=== PATIENT | male | born 1930 | race Caucasian/White ===

== ENCOUNTER 2018-04-14 00:47 | Observation (INO) ==
[2018-04-14] MEDS ORDERED: Sodium Chlor 0.9% Inj 500 ML IV.SIG ONE (00:59)
[2018-04-14 01:29] LABS: Hematocrit 26.7 % (39.0-51.0); Mean Corpuscular HGB Conc 33.8 % (32.0-36.0); Mean Corpuscular Hemoglobin 30.5 pg (27.0-34.0); Mean Corpuscular Volume 90.2 fL (80.0-100.0); Platelet Count 23 th/mm3 (150-450); Red Blood Count 2.96 mil/mm3 (4.50-5.90); Red Cell Distribution Width 18.2 % (11.6-17.2); White Blood Count 9.4 th/mm3 (4.0-11.0)
--- NOTE | 2018-04-14 01:38 | XR ---
EXAM DATE: 04/14/2018 1:18 AM EDT AGE/SEX: 87 years / Male INDICATIONS: Shortness of breath. CLINICAL DATA: This is the patient's initial encounter. Patient reports that signs and symptoms have been present for 1 day and indicates a pain score of 0/10. MEDICAL/SURGICAL HISTORY: Hypertension. None. COMPARISON: No prior exams available for comparison. FINDINGS: A single AP view of the chest demonstrates the lungs to be symmetrically aerated without evidence of mass, infiltrate or effusion. Low lung volumes. The cardiomediastinal contours are unremarkable. Os seous structures are intact. CONCLUSION: Low lung volumes. No discrete infiltrate or effusion. Electronically signed by: Melchor Sorenson MD 04/14/2018 1:36 AM EDT
[2018-04-14 01:50] LABS: Activated Partial Thrombo Time 25.3 sec (24.3-30.1); INR 1.3 Ratio; Prothrombin Time 12.7 sec (9.8-11.6)
[2018-04-14 01:58] LABS: Alanine Aminotransferase 28 U/L (12-78); Anion Gap 8 meq/L (5-15); Aspartate Aminotransferase 67 U/L (15-37); Blood Urea Nitrogen 18 mg/dL (7-18); Calcium 8.1 mg/dL (8.5-10.1); Carbon Dioxide 24.9 meq/L (21.0-32.0); Chloride 105 meq/L (98-107); Glomerular Filtration Rate 57 mL/min (>89); Glucose,Random 112 mg/dL (74-106); Potassium 3.7 meq/L (3.5-5.1); Sodium 138 meq/L (136-145)
[2018-04-14 02:03] LABS: Alkaline Phosphatase 67 U/L (45-117); Total Protein 6.8 g/dL (6.4-8.2)
[2018-04-14 02:19] LABS: Blast Cells 72 % (0-0); Lymphocytes 17 % (9-44); Monocytes 1 % (0-8); Myelocytes 1 % (0-0); Tallied Nucleated RBC 4 (0-0)
[2018-04-14 02:25] LABS: Platelet Morphology Normal (Normal)
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
[2018-04-14] MEDS ORDERED: Bisacodyl 10 MG Supp RECTAL PRN (03:27)
--- NOTE | 2018-04-14 03:44 | P.HP ---
History of Present Illness Service: [facility] Primary Care Physician: UNKNOWN History of Present Illness: 87-year-old male with an unknown past medical history presents to the emergency department for evaluation of weakness, shortness of breath and burning with urination. The patient was brought by EMS from an [facility]. He reports that he was having difficulty breathing which was worse with exertion. He states he was recently seen by his primary care provider and that he was placed on a water pill. He denies chest pain. No abdominal pain. No nausea/vomiting/diarrhea. No lateralizing signs/symptoms. No fever/chills. Endorses a burning in his mind that is worse with urination. States he had a recent history of urinary tract infection a few weeks ago. The patient is a poor historian and does not know his medications or his past medical history. Information obtained from records review. Review of Systems unobtainable due to mental status PMFSH - History History Provided By: Patient - Medical History Medical History: Medical History (Last Updated 04/14/18 @ 03:34 by Mariah Godfrey MD) Anxiety and depression Arthritis Family history unknown Hypertension Surgical history unknown Surgical history unknown - Family History Family History: Family History (Last Updated 04/14/18 @ 03:34 by Mariah Godfrey MD) Other Family history unknown - Tobacco History Second Hand Smoke Exposure: No Smoking Status: Never smoker - Alcohol History How Often Do You Have a Drink Containing Alcohol: Never - Travel History Recent Travel in the [place] Within the Last 8 Weeks: No Recent Travel Out of the Country Within the Last 8 Weeks: No - Immunization History Tetanus Immunization: Unsure Medications and Allergies Active Medications: Active Medications Al Hydroxide/Mg Hydroxide (Milk Of Magnesia Liq) 30 ml PO Q12H PRN PRN Reason: Mild Constipation Bisacodyl (Dulcolax Supp) 10 mg RECTAL DAILY PRN PRN Reason: SEVERE CONSITIPATION Heparin Sodium (Porcine) (Heparin Inj) 5,000 units SQ Q12H ANGELIC Lactulose (Lactulose Liq) 30 ml PO DAILY PRN PRN Reason: SEVERE CONSITIPATION Ondansetron HCl (Zofran Inj) 4 mg IV.PUSH Q6H PRN PRN Reason: NAUSEA OR VOMITING Senna/Docusate Sodium (Xin-Colace) 1 tab PO BID ANGELIC Sennosides (Senokot) 17.2 mg PO Q12H PRN PRN Reason: Moderate Constipation Allergies Allergy/AdvReac Type Severity Reaction Status Date / Time acetaminophen Allergy Mild PRESSURE Unverified 04/08/17 14:48 IN HEAD propoxyphene Allergy Mild PRESSURE Unverified 04/08/17 14:48 IN HEAD diazepam Allergy Unknown Abdominal Unverified 04/14/18 00:57 Pain VALUIM Allergy Unknown NAUSEA Uncoded 02/04/07 18:07 Home Medications Medication Instructions Recorded Confirmed Type Unable to Obtain Home Meds 04/14/18 04/14/18 History Exam Vital signs: Vital Signs 04/14/18 00:53 04/14/18 00:58 04/14/18 02:06 Temperature 98.8 F Pulse Rate 119 H 101 H Respiratory Rate 16 20 Blood Pressure 111/69 Pulse Oximetry 98 Intake & Output 04/13/18 04/13/18 04/14/18 06:59 18:59 06:59 Weight 75 kg Narrative: Gen.: No acute distress Head: Normocephalic. Atraumatic. EENT: Pupils equal round and reactive to light. Nose without drainage. Airway intact. Throat without injection. Cardiovascular: Regular rate and rhythm. No murmurs, rubs or gallops. Respiratory: Lungs clear to auscultation bilaterally. No wheezes or rhonchi. Abdomen: Soft, nontender, nondistended. No peritoneal signs. Musculoskeletal: No gross deformities. No edema. Skin: No obvious rashes or erythema. Neuro: Sensory and motor grossly intact. Cranial nerves II through XII grossly intact. Results - Labs CBC & Chem 7: 04/14/18 01:00 04/14/18 01:00 Labs: Laboratory Results - last 24 hr 04/14/18 04/14/18 04/14/18 01:00 01:00 01:00 WBC 9.4 RBC 2.96 L Hgb 9.0 L Hct 26.7 L MCV 90.2 MCH 30.5 MCHC 33.8 RDW 18.2 H Plt Count 23 L MPV 9.0 Prelim Diff (Auto) Manual diff required WBC Differential Manual diff final Seg Neuts % (Manual) 9 L Lymphocytes % (Manual) 17 Monocytes % (Manual) 1 Myelocytes % (Man) 1 H Blast Cells % (Manual) 72 H Plasma Cell % (Manual) Abs Neuts (Manual) 0.9 L Nucleated RBCs/100 WBC 4 H Differential Comment . Platelet Estimate Low L Platelet Morphology Normal PT 12.7 H INR 1.3 APTT 25.3 Sodium 138 Potassium 3.7 Chloride 105 Carbon Dioxide 24.9 Anion Gap 8 BUN 18 Creatinine 1.21 Estimated GFR 57 L Random Glucose 112 H Lactic Acid Calcium 8.1 L Total Bilirubin 1.0 AST 67 H ALT 28 Alkaline Phosphatase 67 Troponin I Less than 0.02 L B-Natriuretic Peptide Total Protein 6.8 Albumin 3.0 L 04/14/18 04/14/18 01:00 01:05 WBC RBC Hgb Hct MCV MCH MCHC RDW Plt Count MPV Prelim Diff (Auto) WBC Differential Seg Neuts % (Manual) Lymphocytes % (Manual) Monocytes % (Manual) Myelocytes % (Man) Blast Cells % (Manual) Plasma Cell % (Manual) Abs Neuts (Manual) Nucleated RBCs/100 WBC Differential Comment Platelet Estimate Platelet Morphology PT INR APTT Sodium Potassium Chloride Carbon Dioxide Anion Gap BUN Creatinine Estimated GFR Random Glucose Lactic Acid 1.3 Calcium Total Bilirubin AST ALT Alkaline Phosphatase Troponin I B-Natriuretic Peptide 58 Total Protein Albumin - Imaging Impressions Chest X-Ray 04/14/18 01:01 CONCLUSION: Low lung volumes. No discrete infiltrate or effusion. Caprini VTE Risk Assessment Caprini VTE Risk Assessment: Moderate/High Risk (score >= 2) Caprini Risk Assessment Model: Point Value = 1 Point Value = 2 Point Value = 3 Point Value = 5 Age 41-60 Minor surgery BMI > 25 kg/m2 Swollen legs Varicose veins or History of unexplained or recurrent spontaneous Oral contraceptives or hormone replacement Sepsis (< 1 month) Serious lung disease, including pneumonia (< 1 month) Abnormal pulmonary function Acute myocardial infarction Congestive heart failure (< 1 month) History of inflammatory bowel disease Medical patient at bed rest Age 61-74 Arthroscopic surgery Major open surgery (> 45 min) Laparoscopic surgery (> 45 min) Malignancy Confined to bed (> 72 hours) Immobilizing plaster cast Central venous access Age >= 75 History of VTE Family history of VTE Factor V Leiden Prothrombin [id number] Lupus anticoagulant Anticardiolipin antibodies Elevated serum homocysteine Heparin-induced thrombocytopenia Other congenital or acquired thrombophilia Stroke (< 1 month) Elective arthroplasty Hip, pelvis, or leg fracture Acute spinal cord injury (< 1 month) Prophylaxis Regimen: Total Risk Factor Score Risk Level Prophylaxis Regimen 0-1 Low Early ambulation 2 Moderate Order ONE of the following: *Sequential Compression Device (SCD) *Heparin 5000 units SQ BID 3-4 Higher Order ONE of the following medications: *Heparin 5000 units SQ TID *Enoxaparin/Lovenox 40 mg SQ daily (WT < 150 kg, CrCl > 30 mL/min) *Enoxaparin/Lovenox 30 mg SQ daily (WT < 150 kg, CrCl > 10-29 mL/min) *Enoxaparin/Lovenox 30 mg SQ BID (WT < 150 kg, CrCl > 30 mL/min) AND/OR *Sequential Compression Device (SCD) 5 or more Highest Order ONE of the following medications: *Heparin 5000 units SQ TID (Preferred with Epidurals) *Enoxaparin/Lovenox 40 mg SQ daily (WT < 150 kg, CrCl > 30 mL/min) *Enoxaparin/Lovenox 30 mg SQ daily (WT < 150 kg, CrCl > 10-29 mL/min) *Enoxaparin/Lovenox 30 mg SQ BID (WT < 150 kg, CrCl > 30 mL/min) AND *Sequential Compression Device (SCD) Assessment and Plan - Plan Assessment/plan: 1. Weakness/shortness of breath/dyspnea on exertion Chest x-ray negative for acute process Likely some degree of deconditioning Physical therapy consulted Medication reconciliation requested 2. Burning with urination/history of recent UTI Straight cath with UA pending Urine culture as indicated Antibiotics as needed 3. Elevated blasts/anemia Patient was 72% blasts on manual differential H&H 9.0/26.7, baseline unknown Hematology consulted, appreciate recommendations FEN Cardiac diet Electrolytes: Monitor and replete as needed Heparin
[2018-04-14 03:58] LABS: Bacteria,Urine Rare /hpf; Bilirubin,Urine Negative (Negative); Clarity,Urine Hazy (Clear); Color,Urine Yellow (Yellw/Straw); Glucose,Urine (UA) Negative (Negative); Leukocyte Esterase,Urine Trace (Negative); Mucus,Urine Moderate /lpf (Occasional); Nitrite,Urine Negative (Negative); Specific Gravity,Urine 1.016 (1.002-1.035)
[2018-04-14] MEDS: Heparin - SQ 10,000 UNITS/ML Vial SQ SCH ×2 (05:15→17:27)
[2018-04-14] MEDS: Senna/Docusate Sodium 8.6/50 MG Tablet PO SCH ×2 (10:50→20:00)
[2018-04-14] MEDS ORDERED: Loperamide 2 MG Capsule PO PRN (13:18)
[2018-04-14] MEDS ORDERED: Acetaminophen 325 MG Tablet PO PRN (13:18)
--- NOTE | 2018-04-14 19:53 | ECG ---
Date Performed: 04/14/2018 Time Performed: 00:58:01 PTAGE: 87 years EKG: SINUS TACHYCARDIA WITH FREQUENT VENTRICULAR PREMATURE COMPLEXES LOW QRS VOLTAGE IN PRECORDI AL LEADS POSSIBLE INFERIOR MYOCARDIAL INFARCTION ABNORMAL RHYTHM ECG WARNING: DATA QUALITY MAY AFFECT INTERPRETATION PREVIOUS TRACING :04/06/2011@ 20.19 Since the previous tracing, no significant change note d DOCTOR: Cinthya Kowalski Interpretating Date/Time 04/14/2018 19:51:25
[2018-04-14] MEDS: Metoprolol Tartrate 25 MG Tablet PO SCH (20:00)
[2018-04-14] MEDS: Temazepam 15 MG Capsule PO SCH (20:00)
[2018-04-14] MEDS ORDERED: Melatonin 5 MG Tablet PO PRN (21:00)
[2018-04-15] MEDS: Heparin - SQ 10,000 UNITS/ML Vial SQ SCH (05:12)
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
[2018-04-15] MEDS: Metoprolol Tartrate 25 MG Tablet PO SCH ×2 (10:08→20:49)
[2018-04-15] MEDS: Mirtazapine 15 MG Tablet PO SCH (10:08)
[2018-04-15] MEDS: Finasteride 5 MG Tablet PO SCH (10:09)
[2018-04-15] MEDS: Senna/Docusate Sodium 8.6/50 MG Tablet PO SCH ×2 (10:09→20:49)
[2018-04-15] MEDS: Furosemide 40 MG Tablet PO SCH (10:09)
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
--- NOTE | 2018-04-15 12:33 | P.PN ---
Subjective Interval history: patient awake and alert denies any chest painr or shortness of breath states have low back discomfort now denies any dyruria but with frequency Physical Exam Vital signs: Vital Signs 04/14/18 16:00 04/14/18 19:50 04/14/18 23:45 Temperature 98.6 F 98.4 F 98.4 F Pulse Rate 101 H 99 H 98 H Respiratory Rate 16 22 20 Blood Pressure 120/62 98/53 L 135/70 Pulse Oximetry 96 95 94 L 04/15/18 04:00 04/15/18 08:00 04/15/18 11:50 Temperature 98.1 F 98.0 F Pulse Rate 99 H 106 H 101 H Respiratory Rate 22 16 16 Blood Pressure 122/73 119/58 L 134/77 Pulse Oximetry 95 98 Intake & Output 04/14/18 04/15/18 04/15/18 18:59 06:59 18:59 Intake Total 950 / 950 Balance 950 / 950 Weight 77.5 kg Intake: IV 700 / 700 Rocephin Inj 1,000 MG In NS Inj 200 / 200 100 ML @ 200 mls/hr IV.SIG ONCE ONE Rx#:[id number] Oral 250 / 250 Other: # Voids 2 Narrative: awake and alert no acute distress, on exam now a x o x 3 face - mild fading bruise left side of the face lungs- no rales regular rhythm abdomen soft good bowel sounds extremities no edema up ambulated- shuffling- with a walker - Urinary Catheter Management Straight Cath placed during this visit: yes Reason for continuing: Not indwelling catheter Insertion date: 04/14/18 Results - Labs CBC & Chem 7: 04/14/18 01:00 04/14/18 01:00 Laboratory Results - last 24 hr 04/14/18 16:53 POC Glucose 110 Microbiology 04/14/18 01:05 Blood - Peripheral Aerobic Blood Culture - Preliminary No growth in 1 day 04/14/18 01:05 Blood - Peripheral Anaerobic Blood Culture - Preliminary No growth in 1 day 04/14/18 01:00 Blood - Peripheral Aerobic Blood Culture - Preliminary No growth in 1 day 04/14/18 01:00 Blood - Peripheral Anaerobic Blood Culture - Preliminary No growth in 1 day Assessment and Plan - Plan 87 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, anemia and thrombocytopenia - family refused further work up- BM biopsy - palliative care consulted- will likley transition to hospice - d/w either [facility] or [facility] Weakness/shortness of breath/dyspnea on exertion- multifa torial Chest x-ray negative for acute process Likely some degree of deconditioning Physical therapy - patient up and ambulated with walker slowly UTI- Burning with urination/history of recent UTI - culture pending - Start IV rocephin - continue on home Flomax FEN Cardiac diet Electrolytes: Monitor and replete as needed Heparin TEDS for DVT prophylaxis will DC heparin SQ with thromboyctopenia D/W CM- patient came from a nearby [place]- likely going back there under Hospice -family will meet with hospice this pm and will let me know
[2018-04-15 12:54] LABS: Hematocrit 29.1 % (39.0-51.0); Hemoglobin 9.8 gm/dL (13.0-17.0); Mean Corpuscular HGB Conc 33.7 % (32.0-36.0); Mean Corpuscular Hemoglobin 30.5 pg (27.0-34.0); Mean Corpuscular Volume 90.6 fL (80.0-100.0); Mean Platelet Volume 9.1 fL (7.0-11.0); Platelet Count 20 th/mm3 (150-450); Red Blood Count 3.21 mil/mm3 (4.50-5.90); Red Cell Distribution Width 18.4 % (11.6-17.2); White Blood Count 12.6 th/mm3 (4.0-11.0)
[2018-04-15 13:08] LABS: Alanine Aminotransferase 27 U/L (12-78); Albumin 3.1 g/dL (3.4-5.0); Anion Gap 12 meq/L (5-15); Aspartate Aminotransferase 77 U/L (15-37); Blood Urea Nitrogen 16 mg/dL (7-18); Calcium 8.4 mg/dL (8.5-10.1); Carbon Dioxide 23.1 meq/L (21.0-32.0); Chloride 103 meq/L (98-107); Glomerular Filtration Rate 80 mL/min (>89); Glucose,Random 93 mg/dL (74-106); Potassium 3.7 meq/L (3.5-5.1); Sodium 138 meq/L (136-145)
[2018-04-15 13:08] LABS: % Iron Saturation 41.6 % (20-50); Iron 110 mcg/dL (65-175); Lactate Dehydrogenase 630 U/L (87-241); Total Iron Binding Capacity 265 mcg/dL (250-450)
[2018-04-15 13:11] LABS: Alkaline Phosphatase 71 U/L (45-117); Total Protein 7.3 g/dL (6.4-8.2)
[2018-04-15 13:37] LABS: Blast Cells 58 % (0-0); Lymphocytes 25 % (9-44); Tallied Nucleated RBC 10 (0-0)
[2018-04-15 13:38] LABS: Platelet Estimate Rare (Normal); Platelet Morphology Normal (Normal)
[2018-04-15 13:43] LABS: Hepatitits B Surface Antigen Nonreactive (Nonreactive)
--- NOTE | 2018-04-15 15:27 | P.PNONC ---
Subjective Interval history: Patient lying in bed, awake and alert to self, "hospital" and year. I have discussed with the patient the findings of his labs tests and our suspicions for AML. He states "I am an old man I can't go through any treatments like that"-he is declining bone marrow biopsy, as the daughter also declined via telephone conversation with Dr. Levy yesterday. During our discussion the patient's daughter arrived in the room. She again refuses bone marrow biopsy, however asking if we are going to transfuse platelets. She is also requesting that the patient be allowed to stay at the hospital until Friday. Her plan is for the patient to return to [place] upon discharge. Objective Vital Signs/Intake & Output: Vital Signs 04/14/18 16:00 04/14/18 19:50 04/14/18 23:45 Temperature 98.6 F 98.4 F 98.4 F Pulse Rate 101 H 99 H 98 H Respiratory Rate 16 22 20 Blood Pressure 120/62 98/53 L 135/70 Pulse Oximetry 96 95 94 L 04/15/18 04:00 04/15/18 08:00 04/15/18 11:50 Temperature 98.1 F 98.0 F Pulse Rate 99 H 106 H 101 H Respiratory Rate 22 16 16 Blood Pressure 122/73 119/58 L 134/77 Pulse Oximetry 95 98 Intake & Output 04/14/18 04/15/18 04/15/18 18:59 06:59 18:59 Intake Total 950 / 950 Balance 950 / 950 Weight 77.5 kg Intake: IV 700 / 700 Rocephin Inj 1,000 MG In NS Inj 200 / 200 100 ML @ 200 mls/hr IV.SIG ONCE ONE Rx#:[id number] Oral 250 / 250 Other: # Voids 2 Result Diagrams: 04/15/18 12:21 04/15/18 11:21 Laboratory Results: Laboratory Results - last 24 hr 04/14/18 04/15/18 04/15/18 16:53 11:21 12:21 WBC 12.6 H RBC 3.21 L Hgb 9.8 L Hct 29.1 L MCV 90.6 MCH 30.5 MCHC 33.7 RDW 18.4 H Plt Count 20 L MPV 9.1 Prelim Diff (Auto) Manual diff required WBC Differential Manual diff final Seg Neuts % (Manual) 16 Band Neuts % (Manual) 1 Lymphocytes % (Manual) 25 Blast Cells % (Manual) 58 H Abs Neuts (Manual) 2.1 Nucleated RBCs/100 WBC 10 H Differential Comment . Platelet Estimate Rare L Platelet Morphology Normal Smear Path Review Haptoglobin Sodium 138 Potassium 3.7 Chloride 103 Carbon Dioxide 23.1 Anion Gap 12 BUN 16 Creatinine 0.90 Estimated GFR 80 L POC Glucose 110 Random Glucose 93 Calcium 8.4 L Iron TIBC % Saturation Total Bilirubin 0.9 AST 77 H ALT 27 Alkaline Phosphatase 71 Lactate Dehydrogenase Total Protein 7.3 Albumin 3.1 L Vitamin B12 Hep Bs Antigen Hep B Core IgM Ab Hep C IgG Ab 04/15/18 04/15/18 04/15/18 12:21 12:21 12:21 WBC RBC Hgb Hct MCV MCH MCHC RDW Plt Count MPV Prelim Diff (Auto) WBC Differential Seg Neuts % (Manual) Band Neuts % (Manual) Lymphocytes % (Manual) Blast Cells % (Manual) Abs Neuts (Manual) Nucleated RBCs/100 WBC Differential Comment Platelet Estimate Platelet Morphology Smear Path Review Haptoglobin 226 H Sodium Potassium Chloride Carbon Dioxide Anion Gap BUN Creatinine Estimated GFR POC Glucose Random Glucose Calcium Iron 110 TIBC 265 % Saturation 41.6 Total Bilirubin AST ALT Alkaline Phosphatase Lactate Dehydrogenase 630 H Total Protein Albumin Vitamin B12 Greater than 2000 H Hep Bs Antigen Nonreactive Hep B Core IgM Ab Nonreactive Hep C IgG Ab Nonreactive Culture Results: Microbiology 04/14/18 03:30 Urine Culture - Preliminary Clean Catch Urine Immature growth - reincubate 04/14/18 01:05 Aerobic Blood Culture - Preliminary Blood - Peripheral No growth in 1 day Anaerobic Blood Culture - Preliminary No growth in 1 day 04/14/18 01:00 Aerobic Blood Culture - Preliminary Blood - Peripheral No growth in 1 day Anaerobic Blood Culture - Preliminary No growth in 1 day Medications: Active Medications Generic Name Dose Route Start Last Admin Trade Name Freq PRN Reason Stop Dose Admin Acetaminophen 650 mg 04/14/18 13:18 04/14/18 16:50 Tylenol PO 650 mg Q6H PRN Administration PAIN SCALE 1 TO 10 Finasteride 5 mg 04/15/18 09:00 04/15/18 10:09 Proscar PO 5 mg DAILY ANGELIC Administration Furosemide 40 mg 04/15/18 09:00 04/15/18 10:09 Lasix PO 40 mg DAILY ANGELIC Administration Metoprolol Tartrate 12.5 mg 04/14/18 21:00 04/15/18 10:08 Lopressor PO 12.5 mg BID ANGELIC Administration Mirtazapine 15 mg 04/15/18 09:00 04/15/18 10:08 Remeron PO 15 mg DAILY ANGELIC Administration Potassium Chloride 10 meq 04/15/18 09:00 04/15/18 10:09 Klor-Con 10 PO 10 meq DAILY ANGELIC Administration Senna/Docusate Sodium 1 tab 04/14/18 09:00 04/15/18 10:09 Xin-Colace PO Not Given BID ANGELIC Tamsulosin HCl 0.4 mg 04/15/18 09:00 04/15/18 10:08 Flomax PO 0.4 mg DAILY ANGELIC Administration Temazepam 15 mg 04/14/18 21:00 04/14/18 20:00 Restoril PO Not Given HS ANGELIC Objective Remarks: GENERAL: Elderly male patient, ambulating in room with walker. SKIN: Warm and dry. HEAD: Normocephalic. EYES: No scleral icterus. No injection or drainage. NECK: Supple, trachea midline. CARDIOVASCULAR: Regular rate and rhythm without murmurs. RESPIRATORY: Posterior breath sounds clear, equal bilaterally. No accessory muscle use. GASTROINTESTINAL: Abdomen soft, non-tender, nondistended. EXTREMITIES: No cyanosis, or edema. MUSCULOSKELETAL: Adequate muscle tone. NEUROLOGICAL: No obvious focal deficit. Awake, alert, and oriented x3. PSYCHIATRIC: Appropriate mood and affect; insight and judgment normal. Assessment/Plan - Plan This 87-year-old gentleman, who is brought to the emergency room for progressive weakness and shortness of breath. On admission the patient was found to have anemia with hemoglobin of 9 and a platelet count 23,000. The differential revealed 72% circulating blast cells. And an ANC of 900. Hemoccult was consulted this was concerning for acute leukemia. Plan: 1. Blood counts concerning for acute leukemia. The patient's daughter has declined bone marrow biopsy and systemic treatment. 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 2. Continue supportive care. 3. Palliative care has been consulted.
[2018-04-15] MEDS: Temazepam 15 MG Capsule PO SCH (22:00)
--- NOTE | 2018-04-16 07:59 | P.PN ---
Subjective Interval history: awake and alert no complains of pain up and ambulated around his room- "looking for a dental floss" states he slept well overnight Physical Exam Vital signs: Vital Signs 04/15/18 08:00 04/15/18 11:50 04/15/18 19:59 Temperature 98.1 F 98.0 F 98.6 F Pulse Rate 106 H 101 H 108 H Respiratory Rate 16 16 16 Blood Pressure 119/58 L 134/77 114/60 Pulse Oximetry 98 96 Intake & Output 04/15/18 04/16/18 04/16/18 18:59 06:59 18:59 Intake Total 100 / 100 Balance 100 / 100 Intake: IV 100 / 100 Rocephin Inj 1,000 MG In NS Inj 100 / 100 100 ML @ 200 mls/hr IV.SIG Q24H ANGELIC Rx#:[id number] Other: # Voids 5 Narrative: awake and alert no acute distress, on exam now a x o x 3 face - mild fading bruise left side of the face- almost resolved lungs- no rales regular rhythm abdomen soft good bowel sounds extremities no edema up ambulated- shuffling- = slow but steady - Urinary Catheter Management Straight Cath placed during this visit: yes Reason for continuing: Not indwelling catheter Insertion date: 04/14/18 Results - Labs CBC & Chem 7: 04/15/18 12:21 04/15/18 11:21 Laboratory Results - last 24 hr 04/15/18 04/15/18 04/15/18 11:21 12:21 12:21 WBC 12.6 H RBC 3.21 L Hgb 9.8 L Hct 29.1 L MCV 90.6 MCH 30.5 MCHC 33.7 RDW 18.4 H Plt Count 20 L MPV 9.1 Prelim Diff (Auto) Manual diff required WBC Differential Manual diff final Seg Neuts % (Manual) 16 Band Neuts % (Manual) 1 Lymphocytes % (Manual) 25 Blast Cells % (Manual) 58 H Abs Neuts (Manual) 2.1 Nucleated RBCs/100 WBC 10 H Differential Comment . Platelet Estimate Rare L Platelet Morphology Normal Smear Path Review Haptoglobin Sodium 138 Potassium 3.7 Chloride 103 Carbon Dioxide 23.1 Anion Gap 12 BUN 16 Creatinine 0.90 Estimated GFR 80 L Random Glucose 93 Calcium 8.4 L Iron TIBC % Saturation Total Bilirubin 0.9 AST 77 H ALT 27 Alkaline Phosphatase 71 Lactate Dehydrogenase Total Protein 7.3 Albumin 3.1 L Vitamin B12 Hep Bs Antigen Hep B Core IgM Ab Hep C IgG Ab 04/15/18 04/15/18 12:21 12:21 WBC RBC Hgb Hct MCV MCH MCHC RDW Plt Count MPV Prelim Diff (Auto) WBC Differential Seg Neuts % (Manual) Band Neuts % (Manual) Lymphocytes % (Manual) Blast Cells % (Manual) Abs Neuts (Manual) Nucleated RBCs/100 WBC Differential Comment Platelet Estimate Platelet Morphology Smear Path Review Haptoglobin 226 H Sodium Potassium Chloride Carbon Dioxide Anion Gap BUN Creatinine Estimated GFR Random Glucose Calcium Iron 110 TIBC 265 % Saturation 41.6 Total Bilirubin AST ALT Alkaline Phosphatase Lactate Dehydrogenase 630 H Total Protein Albumin Vitamin B12 Greater than 2000 H Hep Bs Antigen Nonreactive Hep B Core IgM Ab Nonreactive Hep C IgG Ab Nonreactive Microbiology 04/14/18 03:30 Clean Catch Urine Urine Culture - Preliminary Immature growth - reincubate 04/14/18 01:05 Blood - Peripheral Aerobic Blood Culture - Preliminary No growth in 1 day 04/14/18 01:05 Blood - Peripheral Anaerobic Blood Culture - Preliminary No growth in 1 day 04/14/18 01:00 Blood - Peripheral Aerobic Blood Culture - Preliminary No growth in 1 day 04/14/18 01:00 Blood - Peripheral Anaerobic Blood Culture - Preliminary No growth in 1 day Assessment and Plan - Plan 87 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 Hospice consulted Weakness/shortness of breath/dyspnea on exertion- multifa torial Chest x-ray negative for acute process Likely some degree of deconditioning Physical therapy - patient up and ambulated with walker slowly UTI- Burning with urination/history of recent UTI - culture pending - on IV rocephin - continue on home Flomax FEN Cardiac diet Electrolytes: Monitor and replete as needed Heparin TEDS for DVT prophylaxis will DC heparin SQ with thromboyctopenia will touch base with CM- patient came from [place]
[2018-04-16] MEDS: Senna/Docusate Sodium 8.6/50 MG Tablet PO SCH (09:04)
[2018-04-16] MEDS: Metoprolol Tartrate 25 MG Tablet PO SCH (09:04)
[2018-04-16] MEDS: Mirtazapine 15 MG Tablet PO SCH (09:05)
[2018-04-16] MEDS: Furosemide 40 MG Tablet PO SCH (09:05)
[2018-04-16] MEDS: Finasteride 5 MG Tablet PO SCH (09:05)
[2018-04-16 11:00] LABS: Hematocrit 30.7 % (39.0-51.0); Hemoglobin 10.4 gm/dL (13.0-17.0); Mean Corpuscular HGB Conc 33.9 % (32.0-36.0); Mean Corpuscular Hemoglobin 30.3 pg (27.0-34.0); Mean Corpuscular Volume 89.6 fL (80.0-100.0); Mean Platelet Volume 7.3 fL (7.0-11.0); Platelet Count 23 th/mm3 (150-450); Red Blood Count 3.43 mil/mm3 (4.50-5.90); Red Cell Distribution Width 18.4 % (11.6-17.2); White Blood Count 17.1 th/mm3 (4.0-11.0)
[2018-04-16 11:41] LABS: Blast Cells 66 % (0-0); Lymphocytes 27 % (9-44); Metamyelocytes 1 % (0-1); Monocytes 2 % (0-8); Tallied Nucleated RBC 7 (0-0)
[2018-04-16 11:42] LABS: Platelet Estimate Rare (Normal); Platelet Morphology Normal (Normal)
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
== END 2018-04-16 15:16 ==
LOC: NEPGCP 00:47 → NEDA 00:47 → NEPC 00:47 → NEDH 08:33 → NEPGCP 11:31
PROVIDERS: ADMIT Internal Medicine; ATTEND Internal Medicine
DX: R53.1 Weakness; I10 Essential (primary) hypertension; Z51.5 Encounter for palliative care; N20.0 Calculus of kidney; R06.02 Shortness of breath; F32.9 Major depressive disorder, single episode, unspecified; C92.00 Acute myeloblastic leukemia, not having achieved remission; D69.6 Thrombocytopenia, unspecified; D64.9 Anemia, unspecified; N39.0 Urinary tract infection, site not specified; M19.90 Unspecified osteoarthritis, unspecified site; F41.9 Anxiety disorder, unspecified